=== PATIENT | male | born 1980 | race Two or more races ===

== ENCOUNTER 2017-09-29 18:09 | Emergency (ER) | payer SELFPAY ==
[~2017-09-29] VITALS: Ht 162.6 cm; Wt 68.0 kg
[2017-09-29 18:06] VITALS: BP 150/100
--- NOTE | 2017-09-29 21:12 | Emergency Room Report ---
History of Present Illness General Chief Complaint: General Complaint Source: EMS Present Illness Allergies: Coded Allergies: No Known Allergies (Unverified , 09/29/17) Patient History Reviewed Nursing Documentation: PMH: Agreed; PSxH: Agreed Nursing Documentation-PMH Past Medical History: No History, Except For History Of Psychiatric Problem: Yes - meth abuse Physical Exam Vital Signs Date Time Temp Pulse Resp B/P (MAP) Pulse Ox O2 Delivery O2 Flow Rate FiO2 09/29/17 18:06 98.1 110 16 150/100 98 Room Air 98.1 Medical Decision Making Diagnostic Impression: Primary Impression: Patient left without being seen ER Course Patient brought in by EMS for evaluation after smoking methamphetamines. Patient brought into the ambulance bay. Patient walked off the gurney and left the ER. Patient observed leaving in stable condition Last Vital Signs Date Time Temp Pulse Resp B/P (MAP) Pulse Ox O2 Delivery O2 Flow Rate FiO2 09/29/17 18:06 98.1 110 16 150/100 98 Room Air 98.1 Status: unchanged Disposition: LEFT W/OUT BEING SEEN Condition: Stable Referrals: NOT CHOSEN IPA/,REFERRING (PCP) Jacob Camarena MD Sep 29, 2017 21:12
== END 2017-09-29 18:14 | disposition left against medical advice (07) ==
LOC: EDBD 18:09 → EMR 18:09
DX: F15.10 Other stimulant abuse, uncomplicated (principal); Z53.21 Procedure and treatment not carried out due to patient leaving prior to being seen by health care provider
CPT/HCPCS: 99281